=== PATIENT | female | born 1990 | race African-American/Black ===

== ENCOUNTER 2017-10-09 06:27 | Emergency (ER) | payer SELFPAY ==
[2017-10-09 06:29] VITALS: BP 131/75; PULSE 95; RESP 14; TEMP 36.6; O2SAT 95; BMI 29.9
--- NOTE | 2017-10-09 06:38 | ED.DCSUM_ITS ---
- ER Visit Summary Date of Service: 10/09/17 Chief Complaint: [vaginal bleeding] History of Present Illness: The patient is a 27 F [that presents with heavy vaginal bleeding for the last 3 months when she gets her menstrual period. She denies passing clots. She uses multiple pads or tampons per day. She has also noticed some bruising symptoms around the time of her period. She denies any hematuria or bleeding when she brushes her teeth. Overall appears well and nontoxic. She has no other complaints. She denies chance of .] Physical Examination: [General: The patient appears well and in no apparent distress. Patient is resting comfortably on cart. Skin: Warm, dry, no pallor noted. No rash. No petechia or purpura. Few old bruises lower extremities. Head: Normocephalic, atraumatic Neck: Supple, nontender. ENT: Moist mucus membranes, pharynx within normal limits. Cardiovascular: Regular Rate and Rhythm, no gallups or rubs Respiratory: Patient is in no distress, no accessory muscle use, lungs are clear to auscultation, no wheezing, rales or rhonchi Musculoskeletal: normal ROM, no deformity, no tenderness, no swelling. GI: No tenderness to palpation, no masses appreciated. No rebound, guarding, or rigidity noted. : pelvic exam with female RN present; normal external genitalia, no lesions, old blood in the vaginal vault, few clots, no active bleeding or discharge, no cervical motion tenderness, os closed Neurological: A&O, normal strength and sensation. Psychiatric: Cooperative] Test Results: [] Emergency Department Course and Treatment: [CBC, UA, and hcg ordered. Pelvic exam shows some old blood in the vaginal vault but no significant active bleeding. Patient will be signed out to oncoming ED physician for evaluation of pending blood work. Patient was instructed to return to the emergency department with any new or worsening symptoms and will be referred to [facility] for close follow-up. Patient understands and is agreeable with this plan of care.] Treatment Plan: [see above] Disposition: [discharge home] Impression: [Menorrhagia] This note was generated with [employer] software. It may contain incorrect words, spelling, and punctuation that were not noted in review of the chart prior to signing ED Disposition - Plan for ED Patient: Disposition: Home or Assisted Living Chief Complaint: Female C/O Instructions: ED Bleed Irregular Vaginal Referrals: Carlos Heard MD [STAFF PHYSICIAN] -
[2017-10-09 07:08] LABS: Absolute Lymphocyte Count 3.38 X10^3/ul (0.83-4.51); Absolute Neutrophil Count 6.2 X10^3/uL (2.0-7.7); Basophil# 0.03 X10^3/uL; Basophil% 0.3 % (0-1); Eosinophil# 0.21 X10^3/uL; Hematocrit 45.5 % (37-47); Hemoglobin 15.4 g/dl (12.0-15.0); Lymphocyte # 3.38 X10^3/ul (4.0); Lymphocyte % 31.9 % (19-41); Mean Corp Hgb Conc 33.8 g/gl (32-36); Mean Corpuscular Hgb 33.5 pg (27.0-32.0); Mean Corpuscular Volume 98.9 fL (81-99); Mean Platelet Vol. 10.6 fl (6.2-12.0); Monocyte# 0.82 X10^3/uL; Monocyte% 7.7 % (0-10); Neutrophil # 6.15 X10^3/uL (2.7-7.7); Neutrophil % 57.9 % (47-70); Platelet Count 213 K/mm3 (150-450); RBC Distribution Width CV 12.4 % (11.6-14.6); RBC Distribution Width SD 44.6 fl (35.1-43.9); White Blood Count 10.6 K/mm3 (4.4-11.0)
[2017-10-09 07:09] LABS: POSITIVE COUNT NO; POSITIVE DIFFERENTIAL NO; POSITIVE MORPHOLOGY NO
[2017-10-09 07:35] LABS: Bacteria 0 SEEN /hpf (None Seen); Color, Urine Amber (Yellow); Glucose, Dipstick Normal (Normal); Ketone-Dipstick 5 mg/dl (Negative); Leukocyte Esterase-Dipstick 100 /ul (Negative); Mucous, Urine 0 SEEN /hpf (<or=2+); Nitrite-Dipstick Negative (Negative); Occult Blood-Urine 250 /ul (Negative); Protein-Dipstick 30 mg/dl (Negative); Urine Bilirubin Dipstick Negative (Negative); Urine Clarity Sl. Cloudy (Clear); Urine Urobilinogen 4 mg/dl (Normal); White Blood Cells 0 SEEN /hpf (0-5)
[2017-10-09 07:42] LABS: Internal QC Validated? YES +Cl - CLEAR BKGD; Pregnancy, Urine Negative Negative; Red Blood Cells-Urine > 100 SEEN /hpf (0-5); Squamous Epithelial Cells - UA 0-5 SEEN /hpf (5-10)
== END 2017-10-09 08:00 | disposition home or self-care (01) ==
PROVIDERS: Emergency Medicine; Emergency Provider Emergency Medicine
DX: N92.0 Excessive and frequent menstruation with regular cycle (principal)
CPT/HCPCS: 81001; 81025; 85025; 99282